=== PATIENT | female | born 1990 | race Caucasian/White ===

== ENCOUNTER 2018-06-01 23:44 | Emergency (ER) | payer OTHER ==
[~2018-06-01] VITALS: Ht 167.6 cm; Wt 88.5 kg
[2018-06-01 23:47] VITALS: BP 140/89
[2018-06-02] MEDS: KETOROLAC 30 MG/ML VIAL IM ONE (00:25)
[2018-06-02] MEDS: AMOXICILLIN 500 MG CAP PO ONE (00:26)
[2018-06-02 00:29] VITALS: BP 140/89
== END 2018-06-02 00:29 | disposition home or self-care (01) ==
LOC: MED 23:44
DX: K04.7 Periapical abscess without sinus (principal)
CPT/HCPCS: 96372; 99283; J1885

== ENCOUNTER 2021-12-20 15:21 | Emergency (ER) | payer OTHER ==
[~2021-12-20] VITALS: Ht 157.5 cm; Wt 77.1 kg
[2021-12-20 15:32] VITALS: BP 139/109
--- NOTE | 2021-12-20 17:00 | NUR ---
PT AMBULATED TO ER BED 10
--- NOTE | 2021-12-20 17:07 | NUR ---
31 Y/O FEMALE C/O LOWER ABD PAIN 07/15 DESCRIBES CRAMPING RADIATES TO LOWER ABD REGION X1DAY. STATES +N/V AND CONSTIPATION. DENIES FEVER/CHILLS. ABD IS SOFT, ROUND, NON-TENDER TO PALPATION, BOWEL SOUNDS ACTIVE X4. DENIES PMH NKA
--- NOTE | 2021-12-20 17:09 | NUR ---
DR ARRIOLA EVALUATING PT AT THIS TIME
--- NOTE | 2021-12-20 17:11 | NUR ---
PT AMBULATED TO RESTROOM FOR UA COLLECTION.
--- NOTE | 2021-12-20 17:13 | NUR ---
PT AMBULATED TO ER BED 10 WITH A STEADY GAIT.
[2021-12-20] MEDS ORDERED: DICYCLOMINE HCL LIQUID 10 MG/5 ML UDC ONE (17:29)
[2021-12-20] MEDS ORDERED: ALUMINUM HYD/MAG/SIMETHICONE 30 ML UDC ONE (17:29)
[2021-12-20] MEDS: DICYCLOMINE HCL LIQUID 20 MG, ALUMINUM HYD/MAG/SIMETHICONE 30 ML, LIDOCAINE VISCOUS 2% ... PO ONE ×3 (17:40)
[2021-12-20] MEDS ORDERED: MIRABULK PO (17:48)
[2021-12-20] MEDS ORDERED: OMEP40EC24 PO (17:48)
[2021-12-20] MEDS ORDERED: ACET-8386 PO (17:48)
[2021-12-20] MEDS ORDERED: CIPR500T4 PO (17:48)
[2021-12-20] MEDS ORDERED: IBUP-2213 PO (17:48)
[2021-12-20 17:57] VITALS: BP 116/66
--- NOTE | 2021-12-20 17:58 | NUR ---
Patient discharged with v/s stable. Written and verbal after care instructions given FOR CONSTIPATION, URINARY TRACT INFECTION,. ABDOMINAL PAIN and explained. Patient alert, oriented and verbalized understanding of instructions. Ambulatory with steady gait. All questions addressed prior to discharge. ID band removed. Patient advised to follow up with PMD. Rx of CIPRO, NORCO, IBUPROFEN, AND MIRALAX given. Patient educated on indication of medication including possible reaction and side effects. Opportunity to ask questions provided and answered.
== END 2021-12-20 17:58 | disposition home or self-care (01) ==
LOC: MED 15:21
DX: N39.0 Urinary tract infection, site not specified (principal); K59.00 Constipation, unspecified; R11.0 Nausea
CPT/HCPCS: 81002; 81025; 99283

== ENCOUNTER 2022-02-14 18:37 | Emergency (ER) | payer OTHER ==
[~2022-02-14] VITALS: Ht 157.5 cm; Wt 76.4 kg
[~2022-02-14 18:37] MED LIST: ACET-8386 PO; CIPR500T4 PO; IBUP-2213 PO; MIRABULK PO; OMEP40EC24 PO
[2022-02-14 19:07] VITALS: BP 119/90
--- NOTE | 2022-02-14 19:11 | NUR ---
SHAHNAZ. HANDED ON URINE CUP.
[2022-02-14] MEDS ORDERED: PNV1TABL5 PO (20:12)
--- NOTE | 2022-02-14 20:25 | NUR ---
PATIENT DISCHARGED. RX OF MULTI TABLET GIVEN TO PATIENT.
--- NOTE | 2022-02-14 20:25 | NUR ---
SEEN BY ER MD NO NURSING INTERVENTIONS PROVIDED FOR PATIENT.
== END 2022-02-14 20:25 | disposition home or self-care (01) ==
LOC: MED 18:37
DX: O20.8 Other hemorrhage in early pregnancy (principal); O26.891 Other specified pregnancy related conditions, first trimester; R42 Dizziness and giddiness; Z79.899 Other long term (current) drug therapy
CPT/HCPCS: 81025; 99282